=== PATIENT | female | born 1960 | race Caucasian/White ===

== ENCOUNTER → 2020-03-02 11:13 | Outpatient (CLI) | payer BC, SELFPAY ==
--- NOTE | ~2020-03-02 | CT_ITS ---
EXAMINATION: CT abdomen wo/w con DATE: 03/02/2020 11:48 INDICATION: History of kidney stones. Renal mass. TECHNIQUE: Computed tomography (CT) of the abdomen and pelvis was performed without and with 100 cc O mnipaque 350 intravenous contrast. The dose-length product was 288.57 mGy-cm. Automated exposure cont rol and iterative reconstruction technique were employed. COMPARISON: None. FINDINGS: There is lingular and right middle lobe atelectasis/scarring. Heart size normal. No signifi cant pleural or pericardial effusion. There is a 2 mm nonobstructing right renal stone. There is a ma ss exophytic from the left kidney measuring 4 x 3.4 x 3 cm, containing macroscopic fat, consistent wi th renal angiomyolipoma. There are small hypodense lesions of the kidneys, most likely benign cysts. There are multiple small hypodense masses of the liver, most likely cysts. The spleen, pancreas, adre nal glands are unremarkable. Gallbladder is present. Nonobstructive bowel gas pattern. No free air or free fluid. No lymphadenopathy. No significant vascular abnormality. There is severe scoliosis with advanced lumbar spondylosis. IMPRESSION: 1. Exophytic left renal mass measuring 4 cm maximum dimension characteristics compatible with renal a ngiomyolipoma. 2: Nonobstructing 2 mm right renal stone. Reviewed, dictated and finalized at location A. IMPRESSION: 1. Exophytic left renal mass measuring 4 cm maximum dimension characteristics c ompatible with renal angiomyolipoma. 2: Nonobstructing 2 mm right renal stone.
--- NOTE | ~2020-03-02 | XR_ITS ---
EXAMINATION: XR abdomen/kub 1V INDICATION: Kidney mass TECHNIQUE: Supine view of the abdomen is obtained. COMPARISON: CT from today FINDINGS: Right nephrolithiasis noted on today's CT examination is not seen. There is lumbar levoscol iosis. The bowel gas pattern is normal. The visualized lung bases are clear. IMPRESSION: 1. No acute abdominal findings. Reviewed, dictated and finalized at location B.
[2020-03-02 11:35] LABS: Estimated Glomerular Filt Rate > 60
== END ==
PROVIDERS: PCP Physician Assistant; Visit Provider Urology
DX: N28.89 Other specified disorders of kidney and ureter (principal); N20.0 Calculus of kidney
CPT/HCPCS: 36415; 74018; 74170; Q9967

== ENCOUNTER 2020-09-01 09:31 | Outpatient (CLI) | payer BC, SELFPAY ==
--- NOTE | ~2020-09-01 | MM_ITS ---
EXAMINATION: MM screening jaelyn BI w emily HISTORY: Screening TECHNIQUE: Craniocaudal and mediolateral oblique 3-D tomosynthesis images were obtained and synthetic 2-D images were generated. CAD analysis was submitted and interpreted. COMPARISON: Comparison to multiple prior studies sequentially, with oldest reviewed study dated 03/2018. BREAST PARENCHYMAL COMPOSITION: The breasts are heterogeneously dense, which may obscure small masses . FINDINGS: There is no evidence of suspicious mass, calcification, or architectural distortion to sugg est malignancy in either breast. There has been no suspicious interval change. IMPRESSION: 1. No mammographic evidence of malignancy. 2. Recommend routine screening mammography in one year. BI-RADS Category 1: Negative Reviewed, dictated and finalized at location A. MOBILE
== END 2020-09-01 09:32 | disposition home or self-care (01) ==
LOC: ANHIMG 09:33
PROVIDERS: PCP Physician Assistant; Visit Provider Nurse Practitioner
DX: Z12.31 Encounter for screening mammogram for malignant neoplasm of breast (principal)
CPT/HCPCS: 77063; 77067

== ENCOUNTER → 2021-07-28 10:08 | Outpatient (CLI) | payer BC, SELFPAY ==
--- NOTE | ~2021-07-28 | DEXA_ITS ---
Bone Density Report Name: BRENDA RUSSO Age: 60 Sex: Female Ethnicity: White Date of : 1960 Indication: osteopenia; height loss; prior fracture; postmenopausal Referring Provider: Vishal*Sandra Nam Study: Bone densitometry was performed. Exam Date: July 28, 2021 Accession number: [id number] Bone Density: Region BMD T-score Z-score Classification AP Spine (L1-L4) 1.039 -0.1 1.5 Normal Femoral Neck (Left) 0.670 -1.6 -0.2 Osteopenia Total Hip (Left) 0.806 -1.1 0.0 Osteopenia Femoral Neck (Right) 0.636 -1.9 -0.5 Osteopenia Total Hip (Right) 0.739 -1.7 -0.6 Osteopenia Total Hip Mean 0.773 -1.4 -0.3 Osteopenia World Health Organization criteria for BMD impression classify patients as: Normal (T-score at or above -1.0), Osteopenia (T-score between -1.0 and -2.5), or Osteoporosis (T-score at or below -2.5). 10-year Fracture Risk(1): Major Osteoporotic Fracture 16% Hip Fracture 2.2% Reported Risk Factors: [place] (), Neck BMD=0.636, BMI=22.8, previous fracture (1) FRAX(R) Version 3.08. Fracture probability calculated for an untreated patient. Fracture probability may be lower if the patient has received treatment. Previous Exams: Region Exam Age BMD T-score BMD Change BMD Change Date g/cm2 vs Baseline vs Previous AP Spine(L1-L4) 07/28/2021 60 1.039 -0.1 -0.118* -0.029* 07/26/2019 58 1.068 0.2 -0.089* 0.035* 07/21/2017 56 1.032 -0.1 -0.124* -0.124* 07/07/2014 53 1.157 1.0 Total Hip(Left) 07/28/2021 60 0.806 -1.1 -0.082* -0.036* 07/26/2019 58 0.842 -0.8 -0.047* 0.018 07/21/2017 56 0.824 -1.0 -0.065* -0.065* 07/07/2014 53 0.888 -0.4 Total Hip(Right) 07/28/2021 60 0.739 -1.7 -0.113* -0.027* 07/26/2019 58 0.766 -1.4 -0.086* 0.047* 07/21/2017 56 0.719 -1.8 -0.133* -0.133* 07/07/2014 53 0.852 -0.7 *Denotes significance at 95% confidence level, LSC for AP Spine = 0.022 g/cm2, LSC for Total Hip = 0.027 g/cm2 Clinical Information Provided by Patient: Has had a low trauma fracture Has used the following medications: Vitamin D Patient maximum height was 60 Menopause Age: 55 Does not regularly consume dairy products Drinks caffeinated beverages Onset of menses at age 10 Number of children 2 Impression: The patient has l
== END ==
PROVIDERS: PCP Physician Assistant; Visit Provider Nurse Practitioner
DX: Z13.820 Encounter for screening for osteoporosis (principal); M85.88 Other specified disorders of bone density and structure, other site; M85.852 Other specified disorders of bone density and structure, left thigh; M85.851 Other specified disorders of bone density and structure, right thigh
CPT/HCPCS: 77080

== ENCOUNTER 2021-09-05 07:45 | Outpatient (CLI) | payer BC, SELFPAY ==
--- NOTE | ~2021-09-05 | MM_ITS ---
EXAMINATION: MM screening jaelyn BI w emily HISTORY: Screening TECHNIQUE: Craniocaudal and mediolateral oblique 3-D tomosynthesis images were obtained and synthetic 2-D images were generated. CAD analysis was submitted and interpreted. COMPARISON: Comparison to multiple prior studies sequentially, with oldest reviewed study dated 03/2018. BREAST PARENCHYMAL COMPOSITION: The breasts are heterogenously dense, which may obscure small masses FINDINGS: There is no evidence of suspicious mass, calcification, or architectural distortion to sugg est malignancy in either breast. There has been no suspicious interval change. IMPRESSION: 1. No mammographic evidence of malignancy. 2. Recommend routine screening mammography in one year. BI-RADS Category 2: Benign finding(s). Reviewed, dictated and finalized at location A. T TENDER
== END 2021-09-05 07:46 | disposition home or self-care (01) ==
LOC: ANHIMG 07:47
PROVIDERS: PCP Physician Assistant; Visit Provider Nurse Practitioner
DX: Z12.31 Encounter for screening mammogram for malignant neoplasm of breast (principal)
CPT/HCPCS: 77063; 77067

== ENCOUNTER 2022-06-02 00:57 | Day surgery (SDC) | payer BC, SELFPAY ==
[2022-05-18 14:02] VITALS: BMI 22.1
--- NOTE | 2022-06-02 12:55 | PM.HPGS ---
History of Present Illness History of Present Illness Consent: Risks, benefits, and alternatives have been discussed and questions answered. Patient agrees to proceed with procedure. Chief complaint: positive cologuard Narrative: Gabrielle Anthony is a 61 year old female referred for colon cancer screening. She had performed Cologuard test which was positive Review of Systems Review of Systems: All systems reviewed & are unremarkable except as noted in HPI and below PMFSH Social History Social History Smoking packs per day: 0.5 Smoking cigarettes per day: 10.0 Years smoked: 3 Smoking pack-years: 1.50 Smoking status: Former smoker Tobacco type: cigarettes Alcohol intake: current Drinks per week: 4 Living arrangements: with family Spiritual care concerns: No Meds Home Medications and Allergies Home Medications Medication Instructions Recorded Confirmed Type amlodipine 2.5 mg tablet 2.5 mg PO DAILY 05/18/22 05/18/22 History famotidine 10 mg tablet (Pepcid AC) 10 mg PO DAILY 05/18/22 05/18/22 History meloxicam 15 mg tablet 15 mg PO DAILY 05/18/22 05/18/22 History Allergies Allergy/AdvReac Type Severity Reaction Status Date / Time Penicillins Allergy Mild UNKNOWN Verified 06/02/22 12:55 Sulfa (Sulfonamide Allergy Mild RASH Verified 06/02/22 12:55 Antibiotics) Exam Resp: Auscultation: clear to auscultation bilaterally Cardio: Rate: regular rate Rhythm: regular rhythm GI: GI Palp: Yes Soft to palpation and No Tenderness to palpation present (GI) Assessment and Plan Assessment and plan (1) Colon cancer screening: Code(s): Z12.11 - Encounter for screening for malignant neoplasm of colon Status: Acute Assessment and Plan: Colonoscopy with possible biopsy or polypectomy or cautery or injection of substances.
[2022-06-02 12:57] VITALS: BP 137/84; PULSE 83; RESP 17; TEMP 36.6; O2SAT 100
--- NOTE | 2022-06-02 13:13 | WPDANESEPPF ---
Anes - Initial Pre Proc Eval Procedure: Operation Date: 06/02/22 14:00 Proposed Procedures p Colonoscopy - Aj Mccoy MD Date/Time: 06/02/22 13:13 Surgeon: Aj Mccoy MD Pre Op Diagnosis: positive cologuard Patient Data Age: 61 Gender: F Height: 1.47 m Weight: 44.9 kg Last Vital Signs Temp 97.9 F 06/02/22 12:57 Pulse 83 06/02/22 12:57 Resp 17 06/02/22 12:57 BP 137/84 06/02/22 12:57 Pulse Ox 100 06/02/22 12:57 O2 Del Method Room Air 06/02/22 12:57 Allergies Allergy/AdvReac Type Severity Reaction Status Date / Time Penicillins Allergy Mild UNKNOWN Verified 06/02/22 12:55 Sulfa (Sulfonamide Allergy Mild RASH Verified 06/02/22 12:55 Antibiotics) Home Medications Medication Instructions Recorded Confirmed Type amlodipine 2.5 mg tablet 2.5 mg PO DAILY 05/18/22 06/02/22 History famotidine 10 mg tablet (Pepcid AC) 10 mg PO DAILY 05/18/22 06/02/22 History meloxicam 15 mg tablet 15 mg PO DAILY 05/18/22 06/02/22 History Patient hx anesthesia problems: none Family hx anesthesia problems: none Results Review: All pre-operative results and documents have been reviewed as part of the pre-operative evaluation. [facility] Social History Social History Smoking packs per day: 0.5 Smoking cigarettes per day: 10.0 Years smoked: 3 Smoking pack-years: 1.50 Smoking status: Former smoker Tobacco type: cigarettes Alcohol intake: current Drinks per week: 4 Living arrangements: with family Spiritual care concerns: No Anes - Eval Final PreProcedure Day of Procedure 06/02/22 13:13 Patient weight: normal Heart: regular rate and rhythm Lungs: clear to auscultation Airway: Mallampati scale class II Neurological: alert and oriented Last oral intake: >/= 8 hours ASA classification: II Emergent: no Anesthetic plan: proceed Anesthesia type and monitoring: general GIVS and standard monitoring Results Review: All pre-operative results and documents have been reviewed as part of the pre-operative evaluation. Informed Consent: The patient's anesthetic plan and its attendant risks and benefits were discussed with the patient/family/POA. Questions were solicited and answers provided to the satisfaction of the patient/family/POA.
[2022-06-02] MEDS: LACTATED RINGERS 1,000 ML 150 ML IV CONT (13:15)
[2022-06-02 13:52] VITALS: BP 112/69; PULSE 114; RESP 17; O2SAT 100
[2022-06-02 14:02] VITALS: BP 104/71; PULSE 92; RESP 17; O2SAT 100
[2022-06-02 14:12] VITALS: BP 131/74; PULSE 89; RESP 17; O2SAT 100
== END 2022-06-02 14:34 | disposition home or self-care (01) ==
PROVIDERS: PCP Physician Assistant; Visit Provider Internal Medicine Gastroenterology
PROC: 0DJD8ZZ Inspection of Lower Intestinal Tract, Via Natural or Artificial Opening Endoscopic (ICD-10-PCS; CPT 45378; principal; 2022-06-02 14:00)
DX: Z12.11 Encounter for screening for malignant neoplasm of colon (principal); K57.30 Diverticulosis of large intestine without perforation or abscess without bleeding; K64.8 Other hemorrhoids; R19.5 Other fecal abnormalities; Z87.891 Personal history of nicotine dependence
CPT/HCPCS: 45378; J2704; J7120

== ENCOUNTER 2022-10-17 08:09 | Outpatient (CLI) | payer BC, SELFPAY ==
--- NOTE | ~2022-10-17 | MM_ITS ---
EXAMINATION: MM screening jaelyn BI w emily HISTORY: Screening mammogram TECHNIQUE: Craniocaudal and mediolateral oblique 3-D tomosynthesis images were obtained and synthetic 2-D images were generated. CAD analysis was submitted and interpreted. COMPARISON: 09/05/2021, 09/01/2020, 08/25/2019 bilateral screening mammogram examinations BREAST PARENCHYMAL COMPOSITION: The breasts are heterogeneously dense, which may obscure small masses . FINDINGS: There are 3 biopsy markers on the right. There is a history of bilateral benign breast biop sies. Occasional bilateral benign-appearing microcalcifications. There is no evidence of suspicious mass, c alcification, or architectural distortion to suggest malignancy in either breast. There has been no s uspicious interval change. IMPRESSION: 1. Benign findings. No mammographic evidence of malignancy. 2. Recommend routine screening mammography in one year. BI-RADS Category 2: Benign finding(s). Reviewed, dictated and finalized at location A.
== END 2022-10-17 08:10 | disposition home or self-care (01) ==
PROVIDERS: PCP Physician Assistant; Visit Provider Nurse Practitioner
DX: Z12.31 Encounter for screening mammogram for malignant neoplasm of breast (principal)
CPT/HCPCS: 77063; 77067

== ENCOUNTER 2023-12-19 14:12 | Outpatient (CLI) | payer MEDICARE, SELFPAY ==
--- NOTE | ~2023-12-19 | MM_ITS ---
EXAMINATION: MM screening jaelyn BI w emily HISTORY: Screening mammogram TECHNIQUE: Craniocaudal and mediolateral oblique 3-D tomosynthesis images were obtained and synthetic 2-D images were generated. CAD analysis was submitted and interpreted. COMPARISON: 10/17/2022, 09/05/2021 bilateral screening mammogram examinations BREAST PARENCHYMAL COMPOSITION: The breasts are heterogeneously dense, which may obscure small masses . FINDINGS: Several biopsy markers are again noted on the right seminal history of prior benign breast biopsies. There is no evidence of suspicious mass, calcification, or architectural distortion to sugg est malignancy in either breast. There has been no suspicious interval change. IMPRESSION: 1. No mammographic evidence of malignancy. 2. Recommend routine screening mammography in one year. BI-RADS Category 2: Benign finding(s). Reviewed, dictated and finalized at location B.
== END 2023-12-19 14:13 | disposition home or self-care (01) ==
LOC: ANHIMG 14:14
PROVIDERS: PCP Physician Assistant; Visit Provider Obstetrics & Gynecology Gynecology
DX: Z12.31 Encounter for screening mammogram for malignant neoplasm of breast (principal)
CPT/HCPCS: 77063; 77067

== ENCOUNTER 2024-01-23 09:00 | Outpatient (CLI) | payer MEDICARE, SELFPAY ==
[2024-01-23 09:35] LABS: Alanine Aminotransferase 26 U/L (6-35); Albumin Level 4.8 g/dL (3.5-5.1); Alkaline Phosphatase 61 U/L (38-126); Anion Gap 8 mmol/L (4-12); Aspartate Amino Transferase 30 U/L (14-36); Blood Urea Nitrogen 14 mg/dL (7-17); Calcium 9.5 mg/dL (8.4-10.2); Carbon Dioxide 27 mmol/L (22-30); Chloride 106 mmol/L (98-107); Estimated Glomerular Filt Rate > 60; Glucose 108 mg/dL (65-110); Potassium 5.6 mmol/L (3.4-5.0); Sodium 141 mmol/L (137-145)
== END 2024-01-23 09:01 | disposition home or self-care (01) ==
LOC: ANHLAB 09:02
PROVIDERS: PCP Physician Assistant; Visit Provider Physician Assistant
DX: E87.5 Hyperkalemia (principal)
CPT/HCPCS: 36415; 80053

== ENCOUNTER → 2024-05-09 13:20 | Outpatient (CLI) | payer MEDICARE, SELFPAY ==
--- NOTE | ~2024-05-09 | XR_ITS ---
EXAMINATION: XR knee RT 3V DATE: 05/09/2024 13:49 INDICATION: Right knee pain. TECHNIQUE: 3 views of right knee were obtained. COMPARISON: None. FINDINGS: Alignment is normal. No fracture. There is severe osteoarthritis of medial compartment, mil d osteoarthritis of lateral compartment, and moderate osteoarthritis of patellofemoral compartment. T here is chondrocalcinosis of the menisci. No knee joint effusion. IMPRESSION: 1. Severe right knee osteoarthritis. Reviewed, dictated and finalized at location A.
== END ==
LOC: EXPCRAD 13:25
PROVIDERS: PCP Physician Assistant; Visit Provider Physician Assistant
DX: M17.11 Unilateral primary osteoarthritis, right knee (principal)
CPT/HCPCS: 73562